=== PATIENT | male | born 1940 | race Caucasian/White ===

== ENCOUNTER 2019-05-26 11:42 | Day surgery (SDC) | payer MEDICARE, BC ==
[2019-05-23 10:05] VITALS: BMI 25.3
[~2019-05-26 11:42] MED LIST: Lidocaine 1% PF 5 ML VIAL ONE; Ondansetron PF 4 MG/2 ML Vial ONE; PROPOFOL 200 MG/20 ML VIAL ONE
--- NOTE | 2019-05-26 12:56 | RAD ---
RADIOGRAPH LUMBAR SPINE 4 VIEWS: DATE: 05/26/2019 HISTORY: 78 year old male with low back pain. TECHNIQUE: Frontal view. 3 lateral views in flexion, extension, and neutral. COMPARISON: 01/01/2015 FINDINGS: 5 lumbar-type vertebrae. Vertebral body heights are maintained. T12-L1, L1-2, and L2-3 disc spaces are relatively preserved. L3-4: Slight retrolisthesis of L3 on L4, unchanged. Interval worsening of now severe disc space narro wing now with vacuum disc phenomenon. Interval worsening of endplate now moderately severe sclerosis and osteophytosis. No instability between flexion and extension. L4-5: Severe disc space narrowing with endplate sclerosis and osteophytosis. Slight grade 1 anterolis thesis of L4 on L5. Range of motion is decreased on the current flexion view compared to the previous, and no definite instability is seen during flexion and extension. L5-S1: Grade 1 anterolisthesis of L4 on L5 has become slightly worse. Moderate to severe disc space n arrowing unchanged. No instability visualized between flexion and extension. Severe facet DJD bilaterally at L4-5 and L5-S1. IMPRESSION: 1) severe lumbar spondylosis including severe degenerative disc disease and severe facet osteoarthros is. 2.) Interval worsening of now severe degenerative disc disease at L3-4. 3) slight progression of grade 1 spondylolisthesis at L5-S1 compared to prior study. 4) no instability visualized, but range of motion is limited.
[2019-05-26] MEDS ORDERED: Gadobenate Dimeglumine 529 MG/1 ML (20ML VIAL) ONE (13:26)
--- NOTE | 2019-05-26 14:44 | MRI ---
MRI of thelumbar spine with and without contrast: 05/26/2019 COMPARISON:01/19/2015 HISTORY:Bilateral leg weakness, low back pain TECHNIQUE: Multiplanar multisequence MR imaging of thelumbar spine with and without contrast. Findings:Sagittal STIR imaging demonstrates no focal area of osseous marrow edema. On the basis of 5 lumbar type vertebral bodies, conus medullaris terminates at L1-2. T12-L1: Mild bilateral facet hypertrophy. No central canal or neural foraminal stenosis. L1-2: Mild bilateral facet hypertrophy. Minimal disc bulge. No significant central canal or neural fo raminal stenosis. L2-3: Disc space narrowing and disc desiccation with mild disc bulge. Mild bilateral facet hypertroph y. No significant central canal or neural foraminal stenosis. L3-4: There is disc space narrowing and disc desiccation with degenerative endplate change and a smal l disc osteophyte complex. Mild associated central canal stenosis, not significantly changed. Prominent bilateral facet hypertrophy with severe bilateral neural foraminal stenosis, bilateral neur al foraminal stenosis slightly worsened when compared to the prior examination bilaterally. L4-5: Minimal stable anterolisthesis. Prominent degenerative endplate change. Disc space narrowing an d disc desiccation with mild disc bulge. Bilateral laminectomy changes are noted. Mild central canal stenosis. Prominent bilateral facet hypertrophy with severe bilateral neural foraminal stenosis , slightly worsened when compared to the prior exam. L5-S1: Stable mild anterolisthesis measuring approximately 5 mm. Mild disc space narrowing and disc d esiccation. No significant central canal stenosis. Bilateral laminectomy changes are seen. Bilateral facet hypertrophy noted with moderate/severe bilateral neural foraminal stenosis, worsened bilaterally when compared to the prior exam. The imaged retroperitoneal structures demonstrate no acute findings. The postcontrast imaging demonstrates no abnormal enhancement involving the contents of the thecal sa c. There is no significant abnormal enhancement involving the imaged osseous structures or intervertebral disks. IMPRESSION:Multilevel degenerative and postoperative change within the lumbar spine. No severe centra l canal stenosis is seen noted at any level. Multilevel severe bilateral neural foraminal stenosis as above.
== END 2019-05-26 16:08 | disposition home or self-care (01) ==
LOC: SDC/OP 11:42
PROVIDERS: ATTEND Surgery
DX: M47.816 Spondylosis without myelopathy or radiculopathy, lumbar region (principal); M51.36 Other intervertebral disc degeneration, lumbar region; M43.17 Spondylolisthesis, lumbosacral region; M48.061 Spinal stenosis, lumbar region without neurogenic claudication; I10 Essential (primary) hypertension; E78.5 Hyperlipidemia, unspecified; K21.9 Gastro-esophageal reflux disease without esophagitis; N40.0 Benign prostatic hyperplasia without lower urinary tract symptoms; Z87.891 Personal history of nicotine dependence; Z79.82 Long term (current) use of aspirin; Z79.899 Other long term (current) drug therapy; Z88.8 Allergy status to other drugs, medicaments and biological substances; Z98.1 Arthrodesis status
CPT/HCPCS: 72110; 72158; 82565; A9577

== ENCOUNTER 2019-06-05 16:19 | Emergency (ER) | payer MEDICARE, BC ==
--- NOTE | 2019-06-05 17:28 | RAD ---
LEFT HAND THREE VIEWS: 06/05/19 HISTORY: Fall with hand injury. There is severe arthritic changes of the wrist with marked arthritic changes of the first carpometaca rpal and triscaphe joint. Also deformity to the distal radius compatible with an old fracture. There are vascular calcifications. No acute injury is noted. 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 POS: [facility]
--- NOTE | 2019-06-05 17:57 | CT ---
CT OF BRAIN PERFORMED WITHOUT CONTRAST ENHANCEMENT: 06/05/19 HISTORY: Fall with head injury. There is generalized ventricular and sulcal prominence. There is no signs of intracerebral hemorrhage or extra-axial fluid collections. The mastoid air cells and visualized sinuses are clear. IMPRESSION: No acute intracranial abnormalities. POS: [facility]
--- NOTE | 2019-06-05 18:09 | CT ---
CT OF FACIAL BONES PERFORMED WITHOUT CONTRAST ENHANCEMENT: 06/05/19 HISTORY: Fall with bruising to right eye. The nasal bone appears intact and zygomatic arches are intact. Pterygoid processes are intact. There is no air fluid levels within the sinuses. No maxillary or orbital fractures are seen. The mandible is intact. Condyles are in normal position. IMPRESSION: No CT evidence of fracture of the facial bones. POS: [facility]
== END 2019-06-05 18:30 | disposition home or self-care (01) ==
LOC: ERS 16:19
DX: S01.111A Laceration without foreign body of right eyelid and periocular area, initial encounter (principal); S51.012A Laceration without foreign body of left elbow, initial encounter; S61.412A Laceration without foreign body of left hand, initial encounter; S61.213A Laceration without foreign body of left middle finger without damage to nail, initial encounter; S40.022A Contusion of left upper arm, initial encounter; S40.021A Contusion of right upper arm, initial encounter; I10 Essential (primary) hypertension; E78.5 Hyperlipidemia, unspecified; M19.90 Unspecified osteoarthritis, unspecified site; K21.9 Gastro-esophageal reflux disease without esophagitis; Z79.82 Long term (current) use of aspirin; W18.30XA Fall on same level, unspecified, initial encounter
CPT/HCPCS: 70450; 70486

== ENCOUNTER 2019-07-10 10:08 | Day surgery (SDC) | payer MEDICARE, BC ==
[2019-07-09 09:41] VITALS: BMI 26.3
[2019-07-10 10:38] LABS: #Basophils 0.1 thou/uL (0.0-0.2); #Eosinphils 0.7 thou/uL (0.0-0.7); #Lymphocytes 1.6 thou/uL (1.20-3.40); #Monocytes 0.6 thou/uL (0.11-0.59); #Neutrophils 2.6 thou/uL (1.40-6.50); %Basophils 1.4 % (0.0-1.0); %Eosinophils 12.3 % (0.0-10.0); %Lymphocytes 28.5 % (21.0-51.0); %Neutrophils 46.9 % (42.0-75.0); Hemoglobin 13.4 g/dL (14.0-18.0); Mean Corpuscular HGB CONC 33.6 g/dL (32.0-36.0); Mean Corpuscular Hemoglobin 32.9 pg (27.0-31.0); Mean Corpuscular Volume 97.8 fL (78.0-98.0); Mean Platelet Volume 8.3 fL (7.4-10.4); Platelet Count 226 thou/uL (130-400); RBC Distribution Width 11.1 % (11.5-14.5); Red Blood Cell (RBC) Count 4.08 mill/uL (4.70-6.10); White Blood Cell (WBC) Count 5.6 thou/uL (4.8-10.8)
[2019-07-10 10:45] LABS: INR-International Normal Ratio 1.1; Prothrombin Time 13.7 SEC (12.0-14.7)
[2019-07-10 11:04] LABS: Anion Gap 13 mmol/L (10-20); BUN (Urea Nitrogen) 17 mg/dL (8.4-25.7); Calc. Creatinine Clearance 54 mL/min (70-130); Calcium 10.1 mg/dL (7.8-10.44); Carbon Dioxide 28 mmol/L (23-31); Chloride 104 mmol/L (98-107); Estimated GFR-MDRD 49; Glucose 107 mg/dL (83-110); Potassium 4.2 mmol/L (3.5-5.1); Sodium 141 mmol/L (136-145)
[2019-07-10] MEDS ORDERED: Fentanyl 100 MCG/2 ML VIAL ONE ×2 (11:04→14:07)
[2019-07-10] MEDS ORDERED: PHENYLEPHRINE-NS 100 MCG/ML 10 ML SYRINGE ONE (11:17)
[2019-07-10] MEDS ORDERED: Lidocaine 1% PF 5 ML VIAL ONE (11:17)
[2019-07-10] MEDS ORDERED: PROPOFOL 200 MG/20 ML VIAL ONE (11:17)
[2019-07-10] MEDS ORDERED: Glycopyrrolate 0.2 MG/ML 5 ML SYRINGE ONE (11:17)
[2019-07-10] MEDS ORDERED: EPHEDRINE 25 MG/5 ML SYRINGE ONE (11:17)
[2019-07-10] MEDS ORDERED: Rocuronium Bromide 10 MG/ML (10ML VIAL) ONE (11:17)
[2019-07-10] MEDS ORDERED: Thrombin 5000 UNITS/5 ML VIAL ONE (11:59)
[2019-07-10] MEDS ORDERED: Meperidine HCl/PF 25 MG/ML VIAL SLOW IVP PRN (14:07)
[2019-07-10] MEDS ORDERED: Ondansetron HCl/PF 4 MG/2 ML Vial IVP PRN (14:07)
[2019-07-10] MEDS ORDERED: Promethazine HCl 25 MG/ML VIAL IM PRN (14:07)
[2019-07-10] MEDS ORDERED: Promethazine HCl 25 MG/ML VIAL SLOW IVP PRN (14:07)
[2019-07-10] MEDS ORDERED: HYDROmorphone 2 MG/ML VIAL SLOW IVP PRN (14:07)
[2019-07-10] MEDS ORDERED: Morphine 2 MG/ML SYRINGE SLOW IVP PRN (14:14)
[2019-07-10] MEDS ORDERED: Bisacodyl 10 MG SUPP PR PRN (14:14)
[2019-07-10] MEDS ORDERED: Mag-Al 1200 mg/1200 mg/30 ML UDCUP PO PRN (14:14)
[2019-07-10] MEDS ORDERED: tiZANidine HCl 4 MG TAB PO PRN (14:14)
[2019-07-10] MEDS ORDERED: Milk Of Magnesia 30 ML UDCUP PO PRN (14:14)
[2019-07-10] MEDS ORDERED: Ondansetron PF 4 MG/2 ML Vial IVP PRN (14:14)
[2019-07-10] MEDS ORDERED: Acetaminophen/Codeine 30-300mg Tablet PO PRN (14:14)
[2019-07-10] MEDS ORDERED: HYDROcodone/Acetaminophen 7.5/325 mg Tablet PO PRN (14:14)
[2019-07-10] MEDS ORDERED: Fleet Enema 133 ML BOT PR PRN (14:14)
[2019-07-10] MEDS ORDERED: traMADol HCl 50 MG TAB PO PRN (14:14)
--- NOTE | 2019-07-10 15:00 | OP ---
DATE OF PROCEDURE: 07/10/2019 SHIPPING ASSOCIATE: Bina Manzano PA-C PREPROCEDURE DIAGNOSIS: Recurrent lumbar stenosis, multiple levels, with L5-S1 spondylolisthesis. POSTPROCEDURE DIAGNOSIS: Recurrent lumbar stenosis, multiple levels, with L5-S1 spondylolisthesis. PROCEDURES PERFORMED: 1. Revision L3-L4, L4-L5, and L5-S1 hemilaminotomies, foraminotomies for decompression of the nerve roots (modifier 50 should be added to this surgery as bilateral work was done at each of the 3 levels). 2. Posterolateral arthrodesis, (in situ) fusion at L5-S1 to treat spondylolisthesis with local bone autograft obtained from same incision and allograft. DESCRIPTION OF PROCEDURE: After informed consent was obtained from the patient, the patient was brought to the OR. Proper patient, pause, and identification were carried out. He was placed under excellent general endotracheal anesthesia and positioned prone on the OR table. All appropriate points were padded. We identified the prior L3 through S1 wound and this region was sterilely cleansed, prepared, and draped. Proper patient, pause, and identification were carried out. The wound was then opened with a combination of sharp, monopolar, and blunt dissection. The L3, L4, L5 hemilamina were exposed and localization film confirmed our area of interest. We then performed bilateral revision L3-L4, L4-L5, and L5-S1 hemilaminotomies and foraminotomies. We identified the L5-S1 posterior lateral region. Local bone autograft obtained from same incision and allograft were laid over this region after the L5-S1 segment was decorticated in the posterior lateral region to initiate arthrodesis with in situ fusion. Copious irrigation occurred throughout as did maximizing hemostasis. The wound was then closed in anatomic layers following sprinkling of vancomycin powder. The patient then emerged from anesthesia. Job ID: [id number]
[2019-07-10] MEDS: Sodium Chloride 0.9% 1,000 ML IV SCH (15:49)
[2019-07-10] MEDS: CEFAZOLIN 2 GM in Premix Bag 1 BAG IVPB SCH (17:40)
[2019-07-11] MEDS: Acetaminophen 325 MG TAB PO PRN ×2 (01:35→12:29)
[2019-07-11] MEDS: CEFAZOLIN 2 GM in Premix Bag 1 BAG IVPB SCH (01:36)
[2019-07-11] MEDS: Sodium Chloride 0.9% 1,000 ML IV SCH ×2 (05:38→17:17)
[2019-07-11] MEDS ORDERED: FOLIC ACID SL SCH (09:00)
[2019-07-11] MEDS ORDERED: CYANOCOBALAMIN SL SCH (09:00)
[2019-07-11] MEDS ORDERED: Furosemide 40 MG TAB PO SCH (09:00)
[2019-07-11] MEDS ORDERED: Losartan 25 MG TAB PO SCH (09:00)
[2019-07-11] MEDS ORDERED: Fenofibrate Nanocrystallized 145 MG TAB PO SCH (09:00)
[2019-07-11] MEDS ORDERED: Loratadine 10 MG TAB PO SCH (09:00)
[2019-07-11] MEDS ORDERED: Atorvastatin Calcium 40 MG TAB PO SCH (09:00)
[2019-07-11] MEDS ORDERED: Tamsulosin HCl 0.4 MG CAP PO SCH (10:45)
--- NOTE | 2019-07-11 12:30 | PRG ---
DATE OF SERVICE: 07/11/2019 Mr. Christensen is doing well postoperative day 1 from multilevel lumbar revision laminectomies and L5-S1 in situ fusion. He has had resolution in his leg pain, but he does have muscle fatigue consistent with longstanding stenosis. I think he would do best in inpatient rehab and I have discussed this with him. We have made the necessary arrangements. He may go to inpatient rehab whenever there is a bed available. Job ID: [id number]
[2019-07-11] MEDS ORDERED: Aspirin 81 mg Enteric Coated Tablet PO SCH (13:15)
[2019-07-11 15:03] VITALS: BP 144/60; TEMP 99.5
[2019-07-12] MEDS ORDERED: Folic Acid 1 MG TAB PO SCH (09:00)
[2019-07-12] MEDS ORDERED: Tamsulosin HCl 0.4 MG CAP PO SCH (09:00)
[2019-07-12] MEDS ORDERED: Aspirin 81 mg Enteric Coated Tablet PO SCH (09:00)
== END 2019-07-11 19:01 ==
LOC: SDC 10:08 → SURG B 15:42 → SDC 07-11 19:01
PROVIDERS: ATTEND Surgery
PROC: 01NB0ZZ Release Lumbar Nerve, Open Approach (ICD-10-PCS; principal; 2019-07-10)
PROC: 01NB0ZZ Release Lumbar Nerve, Open Approach (ICD-10-PCS; 2019-07-10)
PROC: 0SG3071 Fusion of Lumbosacral Joint with Autologous Tissue Substitute, Posterior Approach, Posterior Column, Open Approach (ICD-10-PCS; 2019-07-10)
DX: M43.17 Spondylolisthesis, lumbosacral region (principal); M48.061 Spinal stenosis, lumbar region without neurogenic claudication; M54.10 Radiculopathy, site unspecified; I10 Essential (primary) hypertension; E78.5 Hyperlipidemia, unspecified; K21.9 Gastro-esophageal reflux disease without esophagitis; N40.0 Benign prostatic hyperplasia without lower urinary tract symptoms; M19.90 Unspecified osteoarthritis, unspecified site; Z87.891 Personal history of nicotine dependence; Z79.82 Long term (current) use of aspirin; Z79.899 Other long term (current) drug therapy; Z88.8 Allergy status to other drugs, medicaments and biological substances; Z98.1 Arthrodesis status
CPT/HCPCS: 36415; 76000; 80048; 85025; 85610; 85730; 93005; 93010; J0690; J2001; J2704; J3010; J3370; J3490

== ENCOUNTER 2023-02-23 15:29 | Inpatient (IN) | payer MEDICARE, BC ==
[2023-02-23 16:31] LABS: #Basophils 0.1 thou/uL (0.0-0.2); #Eosinphils 0.5 thou/uL (0.0-0.7); #Monocytes 0.7 thou/uL (0.11-0.59); #Neutrophils 3.9 thou/uL (1.40-6.50); %Basophils 0.9 % (0.0-1.0); %Eosinophils 7.6 % (0.0-10.0); %Lymphocytes 21.6 % (21.0-51.0); %Monocytes 10.3 % (0.0-10.0); %Neutrophils 58.8 % (42.0-75.0); Hematocrit 31.4 % (42.0-52.0); Hemoglobin 10.5 g/dL (14.0-18.0); Mean Corpuscular HGB CONC 33.4 g/dL (32.0-36.0); Mean Corpuscular Hemoglobin 31.2 pg (27.0-31.0); Mean Corpuscular Volume 93.2 fl (78.0-98.0); Mean Platelet Volume 10.6 fL (7.4-10.4); Platelet Count 341 10x3/uL (130-400); RBC Distribution Width 13.7 % (11.5-14.5); Red Blood Cell (RBC) Count 3.37 mill/uL (4.70-6.10); White Blood Cell (WBC) Count 6.6 10x3/uL (4.8-10.8)
[2023-02-23 16:57] LABS: ALT (SGPT) 23 U/L (8-55); AST (SGOT) 39 U/L (5-34); Albumin 3.7 g/dL (3.4-4.8); Alkaline Phosphatase 34 U/L (40-110); Anion Gap 11 mmol/L (10-20); BUN (Urea Nitrogen) 25 mg/dL (8.4-25.7); Bilirubin, Total 0.4 mg/dL (0.2-1.2); Calc. Creatinine Clearance 0 mL/min (70-130); Calcium 9.4 mg/dL (7.8-10.44); Carbon Dioxide 29 mmol/L (23-31); Chloride 104 mmol/L (98-107); Estimated GFR 36; Globulin 2.4 g/dL (2.4-3.5); Glucose 89 mg/dL (83-110); Potassium 3.8 mmol/L (3.5-5.1); Protein, Total 6.1 g/dL (5.8-8.1); Sodium 140 mmol/L (136-145)
[2023-02-23] MEDS ORDERED: HYDROcodone/Acetaminophen 5/325 mg Tablet PO PRN ×2 (18:17)
[2023-02-23] MEDS ORDERED: Ondansetron PF 4 MG/2 ML Vial IVP PRN (18:17)
[2023-02-23] MEDS ORDERED: Acetaminophen 325 MG TAB PO PRN (18:17)
[2023-02-23] MEDS ORDERED: Ondansetron ODT 4 MG TAB PO PRN (18:17)
[2023-02-23] MEDS ORDERED: Furosemide 40 MG/4 ML VIAL SLOW IVP SCH ×2 (18:30→22:30)
[2023-02-23] MEDS ORDERED: Boostrix 0.5 ML (Tdap) VIAL (>/=7 yrs of age) ONE (18:54)
[2023-02-23] MEDS ORDERED: Albuterol 200 PUFF (6.7GM INHALER) INH PRN (18:55)
[2023-02-23] MEDS ORDERED: Vancomycin 1 GM in Premix 1 BAG IVPB SCH (21:00)
[2023-02-23 21:41] VITALS: BMI 27.0
[2023-02-23] MEDS ORDERED: Vancomycin (BATCH) 1.75 GM in Premix 1 BAG IVPB SCH (21:45)
[2023-02-23] MEDS ORDERED: Cefepime 1 GM in Sodium Chloride 0.9% 100 ML IVPB SCH (22:00)
[2023-02-23] MEDS: Atorvastatin Calcium 40 MG TAB PO SCH (22:15)
[2023-02-23] MEDS: Heparin 5,000 UNITS/ML VIAL SC SCH (22:16)
[2023-02-23] MEDS: Gabapentin 300 MG CAP PO SCH (22:16)
[2023-02-24 05:25] LABS: #Basophils 0.1 thou/uL (0.0-0.2); #Eosinphils 0.9 thou/uL (0.0-0.7); #Monocytes 0.8 thou/uL (0.11-0.59); #Neutrophils 3.4 thou/uL (1.40-6.50); %Basophils 1.4 % (0.0-1.0); %Eosinophils 12.2 % (0.0-10.0); %Lymphocytes 27.9 % (21.0-51.0); %Monocytes 10.9 % (0.0-10.0); %Neutrophils 46.6 % (42.0-75.0); Hematocrit 32.9 % (42.0-52.0); Hemoglobin 10.9 g/dL (14.0-18.0); Mean Corpuscular HGB CONC 33.1 g/dL (32.0-36.0); Mean Corpuscular Hemoglobin 30.3 pg (27.0-31.0); Mean Corpuscular Volume 91.4 fl (78.0-98.0); Mean Platelet Volume 11.1 fL (7.4-10.4); Platelet Count 343 10x3/uL (130-400); RBC Distribution Width 13.7 % (11.5-14.5); White Blood Cell (WBC) Count 7.3 10x3/uL (4.8-10.8)
[2023-02-24 05:49] LABS: Anion Gap 11 mmol/L (10-20); BUN (Urea Nitrogen) 24 mg/dL (8.4-25.7); Calc. Creatinine Clearance 41 mL/min (70-130); Calcium 9.3 mg/dL (7.8-10.44); Carbon Dioxide 28 mmol/L (23-31); Chloride 105 mmol/L (98-107); Estimated GFR 38; Glucose 90 mg/dL (83-110); Potassium 3.7 mmol/L (3.5-5.1); Sodium 140 mmol/L (136-145)
[2023-02-24] MEDS ORDERED: Furosemide 40 MG/4 ML VIAL SLOW IVP SCH (06:00)
[2023-02-24] MEDS ORDERED: Amlodipine 5 MG TAB PO SCH ×2 (09:00→13:45)
[2023-02-24] MEDS ORDERED: FLU VACC QS2023(65UP)/MF59C/PF 60 MCG/0.5 ML SYRINGE IM ONE (09:00)
[2023-02-24] MEDS: Gabapentin 300 MG CAP PO SCH ×3 (10:07→21:27)
[2023-02-24] MEDS: Aspirin 81 mg Enteric Coated Tablet PO SCH (10:07)
[2023-02-24] MEDS: Heparin 5,000 UNITS/ML VIAL SC SCH ×3 (10:07→20:46)
[2023-02-24] MEDS: Fenofibrate Nanocrystallized 145 MG TAB PO SCH (10:07)
[2023-02-24] MEDS: Tamsulosin HCl 0.4 MG CAP PO SCH (10:08)
[2023-02-24] MEDS ORDERED: Sulfameth/Trimethoprim DS 800-160mg TAB PO SCH (10:30)
[2023-02-24] MEDS ORDERED: Doxycycline 100 MG CAP PO SCH (10:30)
[2023-02-24] MEDS ORDERED: Losartan 25 MG TAB PO SCH (12:45)
[2023-02-24] MEDS: Ipratropium/Albuterol 3 ML NEB NEB SCH ×4 (13:39→22:14)
[2023-02-24] MEDS: Doxycycline 100 MG CAP PO SCH (20:47)
[2023-02-24] MEDS: Sulfameth/Trimethoprim DS 800-160mg TAB PO SCH (20:47)
[2023-02-24] MEDS: Atorvastatin Calcium 40 MG TAB PO SCH (20:47)
[2023-02-24] MEDS ORDERED: Vancomycin (BATCH) 1.25 GM in Premix 1 BAG IVPB SCH (21:00)
[2023-02-25] MEDS: Ipratropium/Albuterol 3 ML NEB NEB SCH ×4 (02:51→14:32)
[2023-02-25] MEDS ORDERED: Furosemide 40 MG/4 ML VIAL SLOW IVP SCH (06:00)
[2023-02-25] MEDS ORDERED: Amlodipine 10 MG TAB PO SCH (09:00)
[2023-02-25] MEDS ORDERED: Amlodipine 5 MG TAB PO SCH (09:00)
[2023-02-25] MEDS ORDERED: Montelukast Sodium 10 mg Tablet PO SCH (09:00)
[2023-02-25] MEDS ORDERED: Losartan 25 MG TAB PO SCH (09:00)
[2023-02-25] MEDS: Heparin 5,000 UNITS/ML VIAL SC SCH ×2 (09:48→16:37)
[2023-02-25] MEDS: Aspirin 81 mg Enteric Coated Tablet PO SCH (09:50)
[2023-02-25] MEDS: Fenofibrate Nanocrystallized 145 MG TAB PO SCH (09:53)
[2023-02-25] MEDS: Gabapentin 300 MG CAP PO SCH (09:54)
[2023-02-25] MEDS: Tamsulosin HCl 0.4 MG CAP PO SCH (09:54)
[2023-02-25] MEDS: Sulfameth/Trimethoprim DS 800-160mg TAB PO SCH (09:55)
[2023-02-25] MEDS: Doxycycline 100 MG CAP PO SCH (09:55)
[2023-02-25 10:27] LABS: #Basophils 0.1 thou/uL (0.0-0.2); #Eosinphils 0.6 thou/uL (0.0-0.7); #Monocytes 0.6 thou/uL (0.11-0.59); #Neutrophils 3.3 thou/uL (1.40-6.50); %Basophils 1.2 % (0.0-1.0); %Eosinophils 9.8 % (0.0-10.0); %Lymphocytes 28.7 % (21.0-51.0); %Monocytes 9.6 % (0.0-10.0); %Neutrophils 50.1 % (42.0-75.0); Hematocrit 31.8 % (42.0-52.0); Hemoglobin 10.6 g/dL (14.0-18.0); Mean Corpuscular HGB CONC 33.3 g/dL (32.0-36.0); Mean Corpuscular Hemoglobin 30.9 pg (27.0-31.0); Mean Corpuscular Volume 92.7 fl (78.0-98.0); Mean Platelet Volume 10.8 fL (7.4-10.4); Platelet Count 329 10x3/uL (130-400); RBC Distribution Width 13.8 % (11.5-14.5); Red Blood Cell (RBC) Count 3.43 mill/uL (4.70-6.10); White Blood Cell (WBC) Count 6.5 10x3/uL (4.8-10.8)
[2023-02-25 10:49] LABS: Anion Gap 16 mmol/L (10-20); BUN (Urea Nitrogen) 27 mg/dL (8.4-25.7); Calc. Creatinine Clearance 35 mL/min (70-130); Calcium 8.7 mg/dL (7.8-10.44); Carbon Dioxide 24 mmol/L (23-31); Chloride 104 mmol/L (98-107); Estimated GFR 31; Glucose 113 mg/dL (83-110); Potassium 4.4 mmol/L (3.5-5.1); Sodium 140 mmol/L (136-145)
[2023-02-25 12:01] VITALS: BP 128/59; TEMP 97.6
[2023-02-25] MEDS ORDERED: Ipratropium/Albuterol 3 ML NEB NEB SCH (19:00)
[2023-02-25] MEDS ORDERED: Sulfameth/Trimethoprim SS 400-80MG TAB PO SCH (21:00)
== END 2023-02-25 18:00 | disposition home or self-care (01) | DRG 291 ==
LOC: ERS 15:29 → SUATTDRO 15:29 → 2SW 18:12
PROVIDERS: ADMIT Family Medicine; ATTEND Hospitalist
DX: I13.0 Hypertensive heart and chronic kidney disease with heart failure and stage 1 through stage 4 chronic kidney disease, or unspecified chronic kidney disease (principal); I50.31 Acute diastolic (congestive) heart failure; L03.114 Cellulitis of left upper limb; N17.9 Acute kidney failure, unspecified; K21.9 Gastro-esophageal reflux disease without esophagitis; J44.9 Chronic obstructive pulmonary disease, unspecified; N18.9 Chronic kidney disease, unspecified; E78.5 Hyperlipidemia, unspecified; Z88.8 Allergy status to other drugs, medicaments and biological substances; Z79.899 Other long term (current) drug therapy; Z79.82 Long term (current) use of aspirin; Z98.890 Other specified postprocedural states; Z90.49 Acquired absence of other specified parts of digestive tract; Z87.891 Personal history of nicotine dependence
CPT/HCPCS: 36415; 71045; 80048; 80053; 83880; 84484; 85025; 90471; 90715; 93005; 93306; 93880; 94640; 97139; J0692; J1644; J1940; J3370; J3490; J7620